=== PATIENT | female | born 2000 | race Caucasian/White ===

== ENCOUNTER 2021-05-30 10:57 | Outpatient (RCR) | payer BC, SELFPAY ==
[2021-05-29] MEDS: RHO(D) IMMUNE GLOBULIN 300 MCG/2 ML SYRINGE IM (10:19)
== END 2021-08-26 23:59 | disposition home or self-care (01) ==
LOC: ANHLAB 10:57
PROVIDERS: Visit Provider Obstetrics & Gynecology
DX: Z29.13 Encounter for prophylactic Rho(D) immune globulin (principal); O36.0130 Maternal care for anti-D [Rh] antibodies, third trimester, not applicable or unspecified; Z3A.00 Weeks of gestation of pregnancy not specified
CPT/HCPCS: 36415; 84702; 85461; 90384; 96372; J2790

== ENCOUNTER 2021-11-21 13:29 | Outpatient (RCR) | payer BC, SELFPAY ==
[2021-11-21] MEDS: RHO(D) IMMUNE GLOBULIN 300 MCG/2 ML SYRINGE IM (08:22)
== END 2021-11-21 14:00 | disposition home or self-care (01) ==
LOC: ANHLAB 13:29
PROVIDERS: Visit Provider Obstetrics & Gynecology
DX: Z29.13 Encounter for prophylactic Rho(D) immune globulin (principal); O36.0130 Maternal care for anti-D [Rh] antibodies, third trimester, not applicable or unspecified; Z3A.00 Weeks of gestation of pregnancy not specified
CPT/HCPCS: 36415; 85461; 90384; 96372; J2790

== ENCOUNTER 2022-01-17 18:02 | Inpatient (IN) | payer BC, SELFPAY ==
[2022-01-17] VITALS (17 sets, daily range): BP systolic 88–119; BP diastolic 60–85; PULSE 83–110; TEMP 36.6; BMI 30.2
--- OUTSIDE RECORDS SUMMARY | 2022-01-17 18:11 | XMS_ITS | Encounter Summary ---
:2000 Author Reason for Visit OB visit Assessment and Plan 1. Routine care Discussion Note: None recorded.Patient educational handouts: No information available. Plan of Care Reminders Provider Appointments None recorded. ? ? Lab None recorded. ? ? Referral None recorded. ? ? Procedures None recorded. ? ? Surgeries None recorded. ? ? Imaging None recorded. ? ? Medications Name Start Date ? ? ? promethazine 25 mg tablet ? ursodiol 300 mg capsule ? Take 1 capsule twice a day by oral route for 5 days. Medications Administered None recorded. Vitals Height Weight BMI Blood Pressure 5 ft 2 in 163 lbs 29.8 kg/m2 107/72 mm[Hg] Results Lab Results None recorded. Allergies Code Code System Name Reaction Severity Onset NKDA ? ? ? Problems Name Status Onset Date Source ? Active 07/24/2021 ? Cholestasis of Active 01/16/2022 ? Nicotine Dependence Active ? ? Dental Caries Active ? ? RhD Negative Active ? ? Marijuana User Active ? ? Procedures None recorded. Vaccine List None recorded. Social History Tobacco Smoking Status Light Tobacco Smoker (2 packs per wee k) What is the highest grade or level of [id number] school you have completed or the highest degree you have received? What type of diet are you following? REGULAR Are you able to walk? YESWOREST Jeanmarie
--- OUTSIDE RECORDS SUMMARY | 2022-01-17 18:11 | XMS_ITS | Encounter Summary ---
:2000 Author Reason for Visit OB visit Assessment and Plan Assessment Note Patient is ___weeks . Discussed plan. 1. Routine care Discussion Note: None recorded.Patient [...] BMI Blood Pressure 5 ft 2 in 151 lbs 27.6 kg/m2 112/70 mm[Hg] Results Lab Results None recorded. Allergies [...] is the highest grade or level of AE04524-2 school you have completed or the highest degree you have received?
--- OUTSIDE RECORDS SUMMARY | 2022-01-17 18:11 | XMS_ITS | Encounter Summary ---
[...] BMI Blood Pressure 5 ft 2 in 159 lbs 29.1 kg/m2 112/73 mm[Hg] Results Lab Results None recorded. Allergies [...] Smoker (2 packs per wee k) What type of diet are you following? REGULAR Are you able to walk? YESWOREST How much tobacco do you chew? none What is your level of alcohol consumption? None Have you been to an area known to be high N
--- OUTSIDE RECORDS SUMMARY | 2022-01-17 18:11 | XMS_ITS | Encounter Summary ---
:2000 Author Reason for Visit OB visit Assessment and Plan 1. Cholestasis of ? bile acids, total, serum ? ursodiol 300 mg capsule Discussion Note: None recorded.Patient educational handouts: No information available. Plan of Care Reminders Provider Appointments None recorded. ? ? Lab Bile Acids, Total, Serum 01/16/2022 [facility] (Lab) Referral None recorded. ? ? Procedures None recorded. ? ? Surgeries None recorded. ? ? Imaging None recorded. ? ? Medications Name Start Date ? ? ? promethazine 25 mg tablet ? ursodiol 300 mg capsule ? Take 1 capsule twice a day by oral route for 5 days. Medications Administered None recorded. Vitals Height Weight BMI Blood Pressure 5 ft 2 in 167 lbs 30.5 kg/m2 114/77 mm[Hg] Results Lab Results None recorded. Allergies Code Code System Name Reaction Severity Onset NKDA ? ? ? Problems Name Status Onset Date Source ? Active 07/24/2021 ? Cholestasis of Active 01/16/2022 ? Nicotine Dependence Active ? ? Dental Caries Active ? ? RhD Negative Active ? ? Marijuana User Active ? ? Procedures Date Name Performed by ? 01/16/2022 Non-stress Test [facility] [address] [place] [address]-
--- OUTSIDE RECORDS SUMMARY | 2022-01-17 18:11 | XMS_ITS | Encounter Summary ---
:2000 Author Reason for Visit None recorded. Assessment and Plan 1. Cholestasis of ? non-stress test Discussion Note: None recorded.Patient educational handouts: No information available. Plan of Care Reminders Provider Appointments None recorded. ? ? Lab None recorded. ? ? Referral None recorded. ? ? Procedures None recorded. ? ? Surgeries None recorded. ? ? Imaging Non-stress Test 01/16/2022 [facility] Medications Name Start Date ? ? ? promethazine 25 mg tablet ? ursodiol 300 mg capsule ? Take 1 capsule twice a day by oral route for 5 days. Medications Administered None recorded. Vitals None recorded. Results Lab Results None recorded. Allergies Code Code System Name Reaction Severity Onset NKDA ? ? ? Problems Name Status Onset Date Source ? Active 07/24/2021 ? Cholestasis of Active 01/16/2022 ? Nicotine Dependence Active ? ? Dental Caries Active ? ? RhD Negative Active ? ? Marijuana User Active ? ? Procedures Date Name Performed by ? 01/16/2022 Non-stress Test [facility] [address] [place] [address] ([address]) Vaccine List None recorded. Social History Tobacco Smoking Status Light Tobacco Smoker (2 packs per wee k) What is the highest grade or level of [id number]
--- OUTSIDE RECORDS SUMMARY | 2022-01-17 18:11 | XMS_ITS | Encounter Summary ---
:2000 Author Reason for Visit OB visit Assessment and Plan 1. Routine care ? drug screen, urine 2. Dental caries 3. Marijuana user 4. Nicotine dependence Discussion Note: None recorded.Patient educational handouts: No information available. Plan of Care Reminders Provider Appointments None recorded. ? ? Lab Drug Screen, Urine 11/20/2021 [place] Referral None recorded. ? ? Procedures None recorded. ? ? Surgeries None recorded. ? ? Imaging None recorded. ? ? Medications Name Start Date ? ? ? promethazine 25 mg tablet ? ursodiol 300 mg capsule ? Take 1 capsule twice a day by oral route for 5 days. Medications Administered None recorded. Vitals Height Weight BMI Blood Pressure 5 ft 2 in 154 lbs 28.2 kg/m2 110/78 mm[Hg] Results Lab Results Date Name Specimen Result Interpretation Description Value Range Status Address ? 11/20/2021 Drug Screen, Urine ? Amphetamines: negative ? ? [place]: [address] [place] ? ? Urine ? Cannabinoids: positive ? ? [place]: [address] [place] ? ? Urine ? Cocaine: negative ? ? [place]:
--- OUTSIDE RECORDS SUMMARY | 2022-01-17 18:11 | XMS_ITS ---
:2000 Author Care Team Providers Name Role Phone Xena Braden Primary Care Provider Unavailable Allergies Code Code System Name Reaction Severity Status Onset NKDA ? Medications Name Status Start Date Stop Date ? ? cephalexin 500 mg capsule Completed ? 2021 TAKE 1 CAPSULE BY MOUTH TWICE A DAY nitrofurantoin monohydrate/macrocrystals 100 mg capsule Complete d ? 11/20/2021 Active ? Not available promethazine 25 mg tablet Active ? Not av ailable ursodiol 300 mg capsule Active ? Not avai lable Take 1 capsule twice a day by oral route for 5 days. Problems Name Status Onset Date Source ? Active 07/24/2021 ? Cholestasis of Active 01/16/2022 ? Nicotine Dependence Active ? ? Dental Caries Active ? ? RhD Negative Active ? ? Marijuana User Active ? ? Procedures Date Name Performed by ? 06/18/2021 [facility], Obstetric, 1St Trimester [facility] [address] [place] [address] ([address]) 07/24/2021 [facility], Obstetric, Nuchal Translucency [facility] [place] [address] [place] [address] (Work [address]) 09/18/2021 US, Obstetric, 2Nd or 3Rd Trimester [facility] [address] [place] [address] (Work
--- OUTSIDE RECORDS SUMMARY | 2022-01-17 18:11 | XMS_ITS | Encounter Summary ---
:2000 Author Reason for Visit OB visit Assessment and Plan 1. Routine care ? drug screen, urine Discussion Note: None recorded.Patient educational handouts: No information available. Plan of Care Reminders Provider Appointments None recorded. ? ? Lab Drug Screen, Urine 01/09/2022 [place] Referral None recorded. ? ? Procedures None [...] ft 2 in 163 lbs 29.8 kg/m2 112/75 mm[Hg] Results Lab Results Date Name Specimen Result Interpretation Description Value Range Status Address ? 01/09/2022 Drug Screen, Urine ? Amphetamines: negative ? ? [place]: Urine [address] [place] ? ? Urine ? Cannabinoids: negative ? ? [place]: [address] [place] ? ? Urine ? Opiates: negative ? ? [place]: [address]
[2022-01-17 19:21] LABS: Basophils Absolute Auto 0.1 K/mm3 (0.0-0.1); Basophils Percent Auto 0.4 % (0.2-1.2); Eosinophils Absolute Auto 0.2 K/mm3 (0-0.3); Eosinophils Percent Auto 1.2 % (0-4.4); Hematocrit 33.9 % (37.0-47.0); Hemoglobin 10.5 g/dL (12.0-15.0); Immature Granulocyte Absolute 0.16 K/mm3 (0.00-0.031); Immature Granulocyte Percent A 1.2 % (0-0.5); Lymphocytes Absolute Auto 2.46 K/mm3 (0.9-3.2); Lymphocytes Percent Auto 18.8 % (18.3-44.2); Mean Corpuscular Hemoglobin 26.3 pg (26-34); Mean Corpuscular Volume 84.8 fl (80-100); Mean Platelet Volume 10.9 fl (7.4-10.4); Monocytes Absolute Auto 1.3 K/mm3 (0.1-0.6); Monocytes Percent Auto 10.1 % (2.6-8.5); Neutrophils Percent Auto 68.3 % (45.5-73.1); Platelet Count Result 221 k/mm3 (150-375); Red Cell Distribution Width 14.9 % (11.5-14.5); White Blood Count 13.1 K/mm3 (4.5-10.0)
[2022-01-17] MEDS: DINOPROSTONE 10 MG VAG INSERT VAGINAL (19:42)
--- NOTE | 2022-01-17 19:45 | P.PNAN_ITS ---
Anes - Eval Pre Procedure Procedure: labor epidural Date/Time: 01/17/22 19:45 Surgeon: hina Preop Diagnosis: pain during labor Pre Op Diagnosis: Induction of Labor Patient Data Age: 21 Gender: F Height: 1.57 m Weight: 75 kg Last Vital Signs Pulse 87 01/17/22 19:30 BP 109/67 01/17/22 19:30 Allergies Allergy/AdvReac Type Severity Reaction Status Date / Time No Known Allergies Allergy Verified 05/29/21 10:08 Laboratory Tests 01/17/22 01/17/22 18:49 18:50 WBC 13.1 K/mm3 H K/mm3 (4.5-10.0) RBC 4.00 M/mm3 L M/mm3 (4.2-5.4) Hgb 10.5 g/dL L g/dL (12.0-15.0) Hct 33.9 % L % (37.0-47.0) MCV 84.8 fl fl (80-100) MCH 26.3 pg pg (26-34) MCHC 31.0 g/dl L g/dl (32-36) RDW 14.9 % H % (11.5-14.5) Plt Count 221 k/mm3 k/mm3 (150-375) MPV 10.9 fl H fl (7.4-10.4) Immature Gran % (Auto) 1.2 % H % (0-0.5) Neut % (Auto) 68.3 % % (45.5-73.1) Lymph % (Auto) 18.8 % % (18.3-44.2) [place] % (Auto) 10.1 % H % (2.6-8.5) Eos % (Auto) 1.2 % % (0-4.4) Baso % (Auto) 0.4 % % (0.2-1.2) Lymph # (Auto) 2.46 K/mm3 K/mm3 (0.9-3.2) [place] # (Auto) 1.3 K/mm3 H K/mm3 (0.1-0.6) Eos # (Auto) 0.2 K/mm3 K/mm3 (0-0.3) Baso # (Auto) 0.1 K/mm3 K/mm3 (0.0-0.1) Abs Immat Gran (auto) 0.16 K/mm3 H K/mm3 (0.00-0.031) Absolute Neuts (auto) 9.0 K/mm3 H K/mm3 (1.3-6.7) Absolute Nucleated RBC 0.0 K/mm3 K/mm3 (0.0-0.012) Nucleated RBC % 0.0 % % (0.0-0.2) RPR Pending Patient hx anesthesia problems: none Family hx anesthesia problems: none Results Review: All pre-operative results and documents have been reviewed as part of the pre- operative evaluation. [facility] Past Medical History Medical History (Updated 01/17/22 @ 19:46 by Deb Hanna CRNA) IUP (intrauterine ), incidental Obesity (BMI 30-39.9) Social History Social History Smoking status: Former smoker Tobacco type: e-cigarettes/vaping Smokeless tobacco user: other Second hand tobacco smoke exposure: Yes Substance use: current Spiritual care concerns: No Exam Day of Procedure 01/17/22 19:45
[2022-01-17 20:18] LABS: Amphetamine Screen Urine Negative (Negative); Barbiturate Screen Urine Negative (Negative); Benzodiazepines Screen Urine Negative (Negative); Cannabinoid Screen Urine Negative (Negative); Cocaine Screen Urine Negative (Negative); Methadone Screen Urine Negative (Negative); Opiate Screen Urine Negative (Negative); Phencyclidine Screen Urine Negative (Negative)
[2022-01-18] VITALS (170 sets, daily range): BP systolic 86–128; BP diastolic 22–96; PULSE 63–137; RESP 16–18; TEMP 36.3–37.2; O2SAT 83–100
[2022-01-18] MEDS: LACTATED RINGERS 1,000 ML 125 ML IV CONT ×4 (00:39→08:31)
[2022-01-18] MEDS: OXYTOCIN 30 UNITS/NS 500 ML 30 UNITS/500 ML BAG 6 UNITS IV CONT (00:40)
--- NOTE | 2022-01-18 05:56 | PM.IMHP ---
H&P: HPI History of Present Illness Date/Time: 01/18/22 05:56 Chief Complaint: induction of labor Narrative: Annabelle is a 21yo G1 at 38.1 IOL for cholestasis. Severe itching of palms and soles started 4 days ago, started ursodiol yesterday which is helping. has been otherwise uncomplicated. Review of Systems Review of Systems: All systems reviewed & are unremarkable except as noted in HPI and below PMFSH Past Medical History Medical History (Updated 01/18/22 @ 05:57 by Xena Braden MD) IUP (intrauterine ), incidental Obesity (BMI 30-39.9) Social History Social History Smoking status: Former smoker Tobacco type: e-cigarettes/vaping Smokeless tobacco user: other Second hand tobacco smoke exposure: Yes Substance use: current Spiritual care concerns: No Meds Home Medications and Allergies Home Medications Medication Instructions Recorded Confirmed Type vit no.133-ferrous 1 tablet PO DAILY 01/17/22 01/17/22 History fumarate 28 mg-folic acid 800 mcg tablet () ursodiol 300 mg capsule 1 cap PO BID 01/17/22 01/17/22 History Allergies Allergy/AdvReac Type Severity Reaction Status Date / Time No Known Allergies Allergy Verified 05/29/21 10:08 Vital Signs Vital Signs - 24 hr 01/17/22 18:35 01/17/22 18:45 01/17/22 19:00 Temperature Pulse Rate 85 86 92 Blood Pressure 115/65 114/66 110/60 01/17/22 19:15 01/17/22 19:30 01/17/22 19:50 Temperature 97.9 F Pulse Rate 89 87 85 Blood Pressure 108/71 109/67 88/63 L 01/17/22 19:51 01/17/22 20:00 01/17/22 20:15 Temperature Pulse Rate 92 93 96 Blood Pressure 107/76 116/77 109/69 01/17/22 20:30 01/17/22 20:45 01/17/22 21:00 Temperature Pulse Rate 83 92 96 Blood Pressure 114/69 112/69 117/67 01/17/22 21:15 01/17/22 21:30 01/18/22 01:00 Temperature Pulse Rate 110 H 107 H 77 Blood Pressure 111/69 119/85 107/69 01/18/22 01:15 01/18/22 01:30 01/18/22 02:15 Temperature Pulse Rate 79 78 85 Blood Pressure 119/76 115/70 106/70 01/18/22 02:30 01/18/22 02:45 01/18/22 03:00 Temperature Pulse Rate 82 79 85 Blood Pressure 107/65 107/69 116/80 01/17/22 20:38 01/17/22 21:41 01/18/22 00:34 Temperature 98 F 97.9 F 98 F Pulse Rate Blood Pressure 01/18/22 02:04 01/18/22 03:15 01/18/22 03:30 Temperature 97.8 F Pulse Rate 89 80 Blood Pressure 106/61 106/62 01/18/22 03:45 01/18/22 04:00 01/18/22 04:15 Temperature Pulse Rate 69 84 74 Blood Pressure 119/81 111/76 111/73 01/18/22 04:30 01/18/22 04:45 01/18/22 05:00 Temperature Pulse Rate 74 73 71 Blood Pressure 111/79 115/80 121/67 01/18/22 05:15 01/18/22 05:30 01/18/22 04:28 Temperature 97.9 F Pulse Rate 82 78 Blood Pressure 111/76 116/76 01/18/22 05:38 01/18/22 05:45 01/17/22 20:00 Temperature 98 F Pulse Rate 70 93 Blood Pressure 128/81 116/77 01/17/22 21:19 Temperature Pulse Rate 110 H Blood Pressure 111/69 Exam Narrative: 2/50/-2 AROM clear, IUPC placed Const: General: no acute distress Resp: Effort & Inspection: normal respiratory effort Auscultation: clear to auscultation bilaterally Cardio: Rate: regular rate Rhythm: regular rhythm GI: GI Palp: Yes Soft to palpation Extrem: General: normal to inspection H&P: Results Labs Labs: Short CBC 01/17/22 Range/Units 18:49 WBC 13.1 H (4.5-10.0) K/mm3 Hgb 10.5 L (12.0-15.0) g/dL Hct 33.9 L (37.0-47.0) % Plt Count 221 (150-375) k/mm3 Assessment and Plan Assessment and plan (1) Cholestasis during : Code(s): O26.619 - Liver and biliary tract disorders in , unspecified trimester; K83.1 - Obstruction of bile duct Status: Acute Additional Plan Here for induction of labor-cholestasis GBS neg pitocin per protocol FHT category 1
[2022-01-18 06:10] LABS: Rapid Plasma Reagin Non-Reactive (NonReactive)
[2022-01-18] MEDS: fentaNYL CITRATE INJ (*CRX) 100 MCG/2 ML VIAL IV PUSH ×2 (06:26→08:22)
[2022-01-18] MEDS: ursodioL 300 MG CAPSULE PO ×2 (09:26→20:01)
--- NOTE | 2022-01-18 14:47 | PM.OBPRVD ---
OB - Delivery Note Procedure Delivery date: 01/18/22 Procedure: Events: Other (cholestasis) Induction method: AROM, Per Pitocin Protocol and Per Cervidil Protocol Delivery monitor: External FHT and Internal Uterine Route of delivery: Episiotomy description: None Laceration Description: Perineal - 1st Degree Delivery repair: vicryl Specimen: No Quantitative Blood Loss (ml): 130 Anesthesia type: Epidural Disposition: Floor Narrative: With adequate expulsive efforts by the mother, the baby's head was delivered OA. The baby's anterior shoulder was delivered under the pubic symphysis without difficulty. The posterior shoulder and the rest of the baby delivered without difficulty. The infant was placed on the mothers chest and suctioned and stimulated. The cord was clamped and cut after 30 seconds. Mother and baby both stable. Baby Date of : 01/18/22 Time of : 14:30 Weeks of gestation at delivery: 38 Infant gender: Male Weight (pounds): 6 Weight (ounces): 4 presentation: vertex Placenta delivery description: Spontaneous Cord Vessel Description: 3 Vessels and Delayed Cord Clamping score one minute: 8 score five minutes: 9
[2022-01-18] MEDS: OXYTOCIN 30 UNITS/NS 500 ML 30 UNITS/500 ML BAG 125 UNITS IV CONT (15:06)
[2022-01-18] MEDS: WITCH HAZEL 40 PADS 1 PAD TOPICAL (17:31)
[2022-01-18] MEDS: BENZOCAINE 20% AER SPR (*SP) 56 GM CAN 1 SPRAY TOPICAL (17:31)
[2022-01-18] MEDS: IBUPROFEN 600 MG TABLET PO ×2 (17:31→23:55)
--- NOTE | 2022-01-18 19:09 | OBPPTRN ---
1800 Patient transferred to post room #281 via W/C. Support person present. Oriented to unit, room, information board, rooming in, admission packet and security measures. Patient verbalizes understanding.
[2022-01-18] MEDS: ACETAMINOPHEN 325 MG TABLET 650 MG PO (23:55)
[2022-01-19 04:00] VITALS: BP 96/50; PULSE 88; RESP 18; TEMP 36.7
[2022-01-19 05:14] LABS: Hematocrit 30.2 % (37.0-47.0); Hemoglobin 9.5 g/dL (12.0-15.0)
--- NOTE | 2022-01-19 08:15 | PC.NURSE ---
PT introductions made and plan of care discussed per post , pain management, breast feeding, daily care activities. PT and support person both recipients of such instructions and no barriers to learning identified at this time. PT received instructions per one to one discussion, mom baby care guide and demonstrations this shift. PT verbalized understanding of such care.
--- NOTE | 2022-01-19 09:33 | PM.OBPNVD ---
OB - PN: Subj Subjective Date/time seen: 01/19/22 09:33 s/p vaginal delivery no complaints OB - PN: Obj Data Labs CBC & Chem 7: 01/19/22 04:23 Labs: Laboratory Results - last 24 hr 01/19/22 04:23 Hgb 9.5 L Hct 30.2 L OB - PN A/P Plan day: 1 Plan: routine care Time Spent With Patient Time: Total time spent is greater than 50% in coordination of care (as documented) at patient's floor/unit and/or counseling patient: Review of Systems Review of Systems: All systems reviewed & are unremarkable except as noted in HPI and below Exam Const: General: cooperative, healthy appearing and comfortable
[2022-01-19 10:00] VITALS: BP 115/61; PULSE 74; RESP 18; TEMP 37.2; O2SAT 99
--- NOTE | 2022-01-19 10:17 | WPDANLDNPN2 ---
Anes-Prog Note L&D-Neuraxial Date/Time: 01/19/22 10:17 Patient feedback: Patient satisfied with post-operative pain management. Comments: No apparent anesthesia related complications
[2022-01-19] MEDS: ursodioL 300 MG CAPSULE PO ×2 (10:53→19:35)
[2022-01-19] MEDS: ACETAMINOPHEN 325 MG TABLET 650 MG PO (10:53)
[2022-01-19] MEDS: DOCUSATE SODIUM 100 MG CAPSULE PO ×2 (10:53→19:35)
[2022-01-19] MEDS: IBUPROFEN 600 MG TABLET PO (10:54)
[2022-01-19] MEDS: POLYSACCHARIDE IRON COMPLEX 150 MG CAPSULE PO ×2 (10:55→19:35)
[2022-01-19] MEDS: MULTIVIT/MIN/PREN/FOL AC/IRON TABLET 1 TAB PO (10:55)
[2022-01-19 21:00] VITALS: BP 120/73; PULSE 86; RESP 16; TEMP 36.3
--- NOTE | 2022-01-20 05:19 | PC.NURSE ---
01/19/2022 at 2200 Patient viewed the discharge video Mother & Baby Care, The First Two Weeks . Patient was given the opportunity and encouraged to ask questions. Patient verbalized understanding of information shared and has been given the mother/baby guide for home reference.
[2022-01-20] MEDS: IBUPROFEN 600 MG TABLET PO (05:51)
[2022-01-20] MEDS: ACETAMINOPHEN 325 MG TABLET 650 MG PO (05:51)
[2022-01-20 07:30] VITALS: BP 118/73; PULSE 74; RESP 18; TEMP 36.6
--- NOTE | 2022-01-20 08:17 | PM.OBPNVD ---
OB - PN: Subj Subjective Date/time seen: 01/20/22 08:17 day 2 s/p vaginal delivery. No complaints. OB - PN: Obj Data Labs CBC & Chem 7: 01/19/22 04:23 OB - PN A/P Plan day: 2 Plan: routine care and discharge home Time Spent With Patient Time: Total time spent is greater than 50% in coordination of care (as documented) at patient's floor/unit and/or counseling patient: Review of Systems Review of Systems: All systems reviewed & are unremarkable except as noted in HPI and below Exam Const: General: cooperative, healthy appearing and comfortable
--- NOTE | 2022-01-20 08:19 | PM.OBDSVD ---
DS: Admitting Diagnosis Discharge Date 01/20/22 Admitting Diagnosis IOL for cholestasis OB - DS: Summary OB Procedures : None OB Procedures Intrapartum: Spontaneous Vag Delivery OB Procedures: : None Time Spent with Patient Time attestation: Total time spent providing and/or coordinating discharge services: Discharge Plan Discharge Attending physician on discharge: Gisela Adan Discharging Clinician: Pat Mcleod Patient Disposition: Home, Self-Care Activity: pelvic rest Diet: regular Patient Instructions: Antibiotic Form, How to Stop Smoking (GEN) Stand Alone Forms: General Discharge Information Follow-up/Referrals: Xena Braden MD [Physician] - 4 Weeks Discharge Medications: Continued ursodiol 300 mg capsule 1 cap PO BID 28-800 mg-mcg Tablet 1 tablet PO DAILY Date of admission: 01/17/22 18:02 Primary Care Provider: PHYSICIAN,APPLICATIONS TRAINER Admitting Provider: Xena Braden Attending physician on admission: Xena Braden Condition: Stable
[2022-01-20] MEDS: MULTIVIT/MIN/PREN/FOL AC/IRON TABLET 1 TAB PO (09:38)
[2022-01-20] MEDS: DOCUSATE SODIUM 100 MG CAPSULE PO (09:38)
[2022-01-20] MEDS: ursodioL 300 MG CAPSULE PO (09:38)
[2022-01-20] MEDS: POLYSACCHARIDE IRON COMPLEX 150 MG CAPSULE PO (09:38)
[2022-01-22 11:10] VITALS: BP 105/71; PULSE 81; RESP 16; TEMP 37.1; O2SAT 97
== END 2022-01-20 10:02 | disposition home or self-care (01) | DRG 805 ==
LOC: ANHLDR 01-18 04:31 → ANHOB2 01-18 18:33
PROVIDERS: Admitting Provider Obstetrics & Gynecology; Visit Provider Obstetrics & Gynecology
DX: O26.62 Liver and biliary tract disorders in childbirth (principal); K83.1 Obstruction of bile duct; Z37.0 Single live birth; Z3A.38 38 weeks gestation of pregnancy; O70.0 First degree perineal laceration during delivery; O69.3XX0 Labor and delivery complicated by short cord, not applicable or unspecified; O99.214 Obesity complicating childbirth; Z87.891 Personal history of nicotine dependence
CPT/HCPCS: 36415; 80307; 85014; 85018; 85025; 86592; 86850; 86880; 86900; 86901; 86902; A9270; J2590; J2795; J3010; J7120